=== PATIENT | female | born 1950 | race Caucasian/White ===

== ENCOUNTER 2018-03-04 08:10 | Inpatient (IN) | payer MEDICARE, OTHER ==
[2018-03-04] MEDS: SOD CHLORIDE 0.9% 500 ML IV (09:07)
[2018-03-04 09:20] LABS: WHITE BLOOD COUNT 6.6 10^3/ul (4.8-10.8)
[2018-03-04 09:20] LABS: ABNORMAL IP MESSAGE 1; HEMATOCRIT 16.1 % (37.0-47.0); MEAN CORPUSCULAR HEMOGLOBIN 25.6 pg (29.0-33.0); MEAN CORPUSCULAR HGB CONC 28.6 g/dl (32.0-37.0); MEAN CORPUSCULAR VOLUME 89.4 fl (82.0-101.0); MEAN PLATELET VOLUME 10.5 fl (7.4-10.4); NUCLEATED RED BLOOD CELLS% 0.3 /100WBC (0.0-0.0); PLATELET COUNT 163 10^3/UL (140-415); RED CELL DISTRIBUTION WIDTH 16.8 % (11.5-14.5)
[2018-03-04 09:26] LABS: HEMOGLOBIN 4.6 g/dl (12.0-16.0); POSITIVE DIFF @See below
[2018-03-04 09:27] LABS: ADD MAN DIFF? YES; PATH REVIEW? YES-PATH TO CONFIRM
[2018-03-04] MEDS: SOD CHLORIDE 0.9% 0 ML IV (09:27)
[2018-03-04 09:37] LABS: ANION GAP 12 (5-13); BLOOD UREA NITROGEN 44 mg/dl (7-20); CALCIUM 9.2 mg/dl (8.4-10.2); CARBON DIOXIDE 24 mmol/L (21-31); CHLORIDE 107 mmol/L (97-110); CREATININE 1.61 mg/dl (0.44-1.00); Estimated GFR 32 mL/min (>60); GLUCOSE 134 mg/dl (70-220); POTASSIUM 4.1 mmol/L (3.5-5.1); SODIUM 143 mmol/L (135-144)
[2018-03-04 09:43] LABS: ANISOCYTOSIS 1+ (0-0); BASOPHIL #M 0.1 10^3/ul (0.0-0.0); BASOPHILS % (M) 3 % (0-2); HYPOCHROMASIA 1+ (0-0); LYMPHOCYTES #M 0.6 10^3/ul (0.8-2.9); LYMPHOCYTES % (M) 10 % (15-51); MONOCYTE #M 0.2 10^3/ul (0.3-0.9); MONOCYTES % (M) 4 % (0-11); PLATELET ESTIMATE NORMAL; POLYCHROMASIA 3+ (0-0); SEGMENTED NEUTROPHILS (M) % 83 % (39-77); SMUDGE%M 27 % (0-0)
[2018-03-04 09:48] LABS: TROPONIN-I 0.028 ng/ml (0.000-0.120)
[2018-03-04] MEDS ORDERED: ACETAMINOPHEN 325 MG TAB PO (10:00)
[2018-03-04] MEDS ORDERED: ONDANSETRON 4 MG INJ IV ×2 (10:00→11:00)
[2018-03-04] MEDS ORDERED: DOCUSATE SODIUM 100 MG CAP PO (11:00)
[2018-03-04] MEDS ORDERED: NACL 0.9% 3 ML SYG IV (11:00)
[2018-03-04 11:20] LABS: IRON 17 ug/dl (35-150)
[2018-03-04 11:30] LABS: % IRON SATURATION 4 % SAT (22-52); TOTAL IRON BINDING CAPACITY 453 ug/dl (241-421)
[2018-03-04] MEDS ORDERED: GLUCOSE GEL 15 GRAM TUBE BUCCAL (11:30)
[2018-03-04] MEDS ORDERED: GLUCOSE GEL 15 GRAM TUBE PO ×2 (11:30)
[2018-03-04] MEDS ORDERED: DEXTROSE 50% 50 ML SYRINGE IV ×2 (11:30)
[2018-03-04] MEDS ORDERED: GLUCAGON 1 MG INJ IM (11:30)
[2018-03-04] MEDS: INSULIN ASPART [NOVOLOG] 3 ML PEN SC ×3 (11:50→20:25)
[2018-03-04] MEDS ORDERED: VERAPAMIL 120 MG TAB PO (13:00)
[2018-03-04] MEDS: SOD CHLORIDE 0.9% 1,000 ML IV (13:03)
[2018-03-04] MEDS: FISH OIL 1,000 MG CAP PO (13:03)
[2018-03-04] MEDS: FUROSEMIDE 20 MG INJ IV (13:04)
[2018-03-04] MEDS: SOD FERRIC GLUC COMPLX 125 MG in SOD CHLORIDE 0.9% 100 ML IVPB (15:24)
[2018-03-04 18:16] LABS: ADD UMIC NO; UR ASCORBIC ACID NEGATIVE (NEGATIVE); UR BILIRUBIN (Dip) NEGATIVE (NEGATIVE); UR BLOOD (Dip) NEGATIVE (NEGATIVE); UR CLARITY CLEAR (CLEAR); UR COLOR STRAW (YELLOW); UR GLUCOSE (Dip) NEGATIVE (NEGATIVE); UR KETONES (Dip) NEGATIVE (NEGATIVE); UR LEUKOCYTE ESTERASE (Dip) NEGATIVE Leu/ul (NEGATIVE); UR NITRITE (Dip) NEGATIVE (NEGATIVE); UR SPECIFIC GRAVITY (Dip) 1.008 (1.003-1.030); UR TOTAL PROTEIN (Dip) NEGATIVE (NEGATIVE); UR UROBILINOGEN (Dip) NEGATIVE (NEGATIVE)
[2018-03-04 18:30] LABS: CREATININE,URINE RANDOM 21.45 mg/dl (20-320)
[2018-03-04] MEDS: INSULIN GLARGINE [LANTus] (100 UNITS/ML) SYG SC (20:00)
[2018-03-04] MEDS: ATORVASTATIN 10 MG TAB PO (20:26)
[2018-03-04] MEDS: TERAZOSIN 2 MG CAP PO (20:26)
[2018-03-04] MEDS ORDERED: NON-FORMULARY/PATIENT OWN MED (Lovastatin 40 MG) PO (21:00)
[2018-03-04 21:51] LABS: IMMEDIATE SPIN CROSSMATCH 1 5
[2018-03-04] MEDS: SOD CHLORIDE 0.9% 250 ML IV* (22:04)
[2018-03-05] MEDS: ACCU-CHEK XX (02:00)
[2018-03-05 02:21] LABS: HEMATOCRIT 21.9 % (37.0-47.0)
[2018-03-05 02:26] LABS: HEMOGLOBIN 6.9 g/dl (12.0-16.0)
[2018-03-05] MEDS: INSULIN ASPART [NOVOLOG] 3 ML PEN SC ×4 (07:52→20:52)
[2018-03-05] MEDS: MULTIVITAMINS THERAPEUTIC TAB PO (08:08)
[2018-03-05] MEDS: ACETAMINOPHEN 325 MG TAB PO (08:08)
[2018-03-05] MEDS: FISH OIL 1,000 MG CAP PO (08:08)
[2018-03-05] MEDS: LINAGLIPTIN 5 MG TABLET PO (08:08)
[2018-03-05] MEDS: METOPROLOL 25 MG TAB PO (08:09)
[2018-03-05] MEDS ORDERED: INDAPAMIDE 2.5 MG PO (09:00)
[2018-03-05 11:58] LABS: OCCULT BLOOD STOOL NEGATIVE (NEGATIVE)
[2018-03-05 12:00] LABS: ADD MAN DIFF? NO
[2018-03-05 12:09] LABS: RETICULOCYTE RBC 3.05
[2018-03-05 12:09] LABS: RETICULOCYTE COUNT # 0.093 X10^6 (0.020-0.110); RETICULOCYTE COUNT % 3.1 % (0.5-1.5)
[2018-03-05 12:10] LABS: WHITE BLOOD COUNT 8.5 10^3/ul (4.8-10.8)
[2018-03-05 12:10] LABS: BASOPHIL # 0.1 10^3/ul (0.0-0.1); BASOPHILS % 0.9 % (0.0-2.0); EOSINOPHILS # 0.3 10^3/ul (0.0-0.5); EOSINOPHILS % 3.3 % (0.0-7.0); HEMATOCRIT 27.4 % (37.0-47.0); HEMOGLOBIN 8.4 g/dl (12.0-16.0); LYMPHOCYTES # 1.1 10^3/ul (0.8-2.9); LYMPHOCYTES % 12.5 % (15.0-51.0); MEAN CORPUSCULAR HEMOGLOBIN 26.8 pg (29.0-33.0); MEAN CORPUSCULAR HGB CONC 30.7 g/dl (32.0-37.0); MEAN CORPUSCULAR VOLUME 87.3 fl (82.0-101.0); MEAN PLATELET VOLUME 11.3 fl (7.4-10.4); MONOCYTE # 0.8 10^3/ul (0.3-0.9); MONOCYTES % 9.7 % (0.0-11.0); NEUTROPHIL # 6.2 10^3/ul (1.6-7.5); NEUTROPHILS % 73.1 % (39.0-77.0); NUCLEATED RED BLOOD CELLS # 0.1 10^3/ul (0.0-0.0); NUCLEATED RED BLOOD CELLS% 0.6 /100WBC (0.0-0.0); PLATELET COUNT 178 10^3/UL (140-415); RED BLOOD COUNT 3.14 10^6/ul (4.20-5.40); RED CELL DISTRIBUTION WIDTH 15.9 % (11.5-14.5)
[2018-03-05 12:21] LABS: ALANINE AMINOTRANSFERASE 23 IU/L (13-69); ALBUMIN 3.4 g/dl (3.3-4.9); ALBUMIN/GLOBULIN RATIO 1.13; ALKALINE PHOSPHATASE 58 IU/L (42-121); ANION GAP 6 (5-13); ASPARTATE AMINO TRANSFERASE 22 IU/L (15-46); BILIRUBIN,INDIRECT 1.2 mg/dl (0-1.1); BILIRUBIN,TOTAL 1.2 mg/dl (0.2-1.3); BLOOD UREA NITROGEN 38 mg/dl (7-20); CALCIUM 8.9 mg/dl (8.4-10.2); CARBON DIOXIDE 29 mmol/L (21-31); CHLORIDE 105 mmol/L (97-110); CHOLESTEROL 130 mg/dl (100-200); CREATININE 1.51 mg/dl (0.44-1.00); Estimated GFR 34 mL/min (>60); GLUCOSE 87 mg/dl (70-220); HDL CHOLESTEROL 32 mg/dl (33-92); LDL CHOLESTEROL,CALCULATED 63 mg/dl; MAGNESIUM 1.8 mg/dl (1.7-2.5); PHOSPHORUS 3.7 mg/dl (2.5-4.9); POTASSIUM 4.2 mmol/L (3.5-5.1); SODIUM 140 mmol/L (135-144); TOTAL PROTEIN 6.4 g/dl (6.1-8.1); TRIGLYCERIDES 173 mg/dl (0-149)
[2018-03-05 12:28] LABS: HEMOGLOBIN A1C 5.6 % (0-5.9)
[2018-03-05 12:53] LABS: LACTATE DEHYDROGENASE 594 IU/L (313-618)
[2018-03-05] MEDS: PE/SHARK OIL/MO/PETROL 30 GM OINT PR (12:56)
[2018-03-05] MEDS: SOD FERRIC GLUC COMPLX 125 MG in SOD CHLORIDE 0.9% 100 ML IVPB (12:56)
[2018-03-05] MEDS: SOD CHLORIDE 0.9% 500 ML IV (13:30)
[2018-03-05] MEDS: SOD CHLORIDE 0.9% 1,000 ML IV (13:30)
[2018-03-05 13:50] LABS: FOLATE > 20.0 ng/ml (2.8-20.0)
[2018-03-05 13:53] LABS: CARCINOEMBRYONIC ANTIGEN 1.8 ng/ml (0.0-5.0)
[2018-03-05] MEDS: PEG/ELECTROLYTES 4L BTL PO (14:48)
[2018-03-05 15:00] LABS: FERRITIN 19.6 ng/ml (11.1-264.0)
[2018-03-05 18:32] LABS: HEMATOCRIT 29.1 % (37.0-47.0); HEMOGLOBIN 8.9 g/dl (12.0-16.0)
[2018-03-05] MEDS: TERAZOSIN 2 MG CAP PO (20:54)
[2018-03-05] MEDS: ATORVASTATIN 10 MG TAB PO (20:54)
[2018-03-05] MEDS: INSULIN GLARGINE [LANTus] (100 UNITS/ML) SYG SC (20:59)
[2018-03-06] MEDS: PE/SHARK OIL/MO/PETROL 30 GM OINT PR ×3 (00:10→23:30)
[2018-03-06] MEDS: ACCU-CHEK XX (02:00)
[2018-03-06 05:32] LABS: ADD MAN DIFF? NO
[2018-03-06 05:43] LABS: WHITE BLOOD COUNT 9.4 10^3/ul (4.8-10.8)
[2018-03-06 05:43] LABS: BASOPHIL # 0.1 10^3/ul (0.0-0.1); BASOPHILS % 0.6 % (0.0-2.0); EOSINOPHILS # 0.3 10^3/ul (0.0-0.5); EOSINOPHILS % 3.5 % (0.0-7.0); HEMATOCRIT 26.4 % (37.0-47.0); HEMOGLOBIN 8.1 g/dl (12.0-16.0); LYMPHOCYTES # 1.2 10^3/ul (0.8-2.9); LYMPHOCYTES % 12.6 % (15.0-51.0); MEAN CORPUSCULAR HGB CONC 30.7 g/dl (32.0-37.0); MEAN PLATELET VOLUME 11.8 fl (7.4-10.4); MONOCYTES % 10.2 % (0.0-11.0); NEUTROPHIL # 6.8 10^3/ul (1.6-7.5); NEUTROPHILS % 72.6 % (39.0-77.0); NUCLEATED RED BLOOD CELLS% 0.3 /100WBC (0.0-0.0); PLATELET COUNT 154 10^3/UL (140-415); RED CELL DISTRIBUTION WIDTH 15.9 % (11.5-14.5)
[2018-03-06 06:11] LABS: ANION GAP 10 (5-13); BLOOD UREA NITROGEN 30 mg/dl (7-20); CALCIUM 8.5 mg/dl (8.4-10.2); CARBON DIOXIDE 26 mmol/L (21-31); CHLORIDE 107 mmol/L (97-110); Estimated GFR 41 mL/min (>60); GLUCOSE 77 mg/dl (70-220); POTASSIUM 3.8 mmol/L (3.5-5.1); SODIUM 143 mmol/L (135-144)
[2018-03-06] MEDS: INSULIN ASPART [NOVOLOG] 3 ML PEN SC ×4 (07:49→20:32)
[2018-03-06] MEDS: METOPROLOL 25 MG TAB PO (08:54)
[2018-03-06] MEDS: FISH OIL 1,000 MG CAP PO (08:54)
[2018-03-06] MEDS: LINAGLIPTIN 5 MG TABLET PO (08:55)
[2018-03-06] MEDS: MULTIVITAMINS THERAPEUTIC TAB PO (08:55)
[2018-03-06 09:02] LABS: HAPTOGLOBIN 243 mg/dL (43-212)
[2018-03-06 10:10] LABS: HEMATOCRIT 26.5 % (37.0-47.0); HEMOGLOBIN 8.1 g/dl (12.0-16.0)
[2018-03-06] MEDS: SOD CHLORIDE 0.9% 250 ML IV* (11:25)
[2018-03-06] MEDS: SOD CHLORIDE 0.9% 1,000 ML IV ×2 (11:26→17:39)
[2018-03-06 12:51] LABS: PROTEIN, TOTAL 6.3 g/dL (6.1-8.1)
[2018-03-06 14:22] LABS: ERYTHROPOIETIN 94.2 mIU/mL (2.6-18.5)
[2018-03-06] MEDS: PROPOFOL 60 ML (15:36)
[2018-03-06] MEDS: SOD FERRIC GLUC COMPLX 125 MG in SOD CHLORIDE 0.9% 100 ML IVPB (15:46)
[2018-03-06 19:41] LABS: ALBUMIN 3.2 g/dL (3.8-4.8); ALPHA-1-GLOBULINS 0.4 g/dL (0.2-0.3); BETA 2 GLOBULINS 0.3 g/dL (0.2-0.5); BETA GLOBULINS 0.6 g/dL (0.4-0.6); GAMMA GLOBULINS 0.9 g/dL (0.8-1.7)
[2018-03-06] MEDS: ATORVASTATIN 10 MG TAB PO (20:30)
[2018-03-06] MEDS: TERAZOSIN 2 MG CAP PO (20:31)
[2018-03-06] MEDS: INSULIN GLARGINE [LANTus] (100 UNITS/ML) SYG SC (20:45)
[2018-03-07] MEDS: ACCU-CHEK XX (02:00)
[2018-03-07 06:51] LABS: ADD MAN DIFF? NO
[2018-03-07 07:03] LABS: BASOPHILS % 0.5 % (0.0-2.0); EOSINOPHILS # 0.3 10^3/ul (0.0-0.5); EOSINOPHILS % 3.8 % (0.0-7.0); HEMATOCRIT 27.4 % (37.0-47.0); HEMOGLOBIN 8.5 g/dl (12.0-16.0); LYMPHOCYTES # 1.2 10^3/ul (0.8-2.9); LYMPHOCYTES % 15.9 % (15.0-51.0); MEAN CORPUSCULAR HEMOGLOBIN 27.7 pg (29.0-33.0); MEAN CORPUSCULAR VOLUME 89.3 fl (82.0-101.0); MEAN PLATELET VOLUME 11.2 fl (7.4-10.4); MONOCYTE # 0.8 10^3/ul (0.3-0.9); MONOCYTES % 11.3 % (0.0-11.0); NUCLEATED RED BLOOD CELLS% 0.3 /100WBC (0.0-0.0); PLATELET COUNT 157 10^3/UL (140-415); RED BLOOD COUNT 3.07 10^6/ul (4.20-5.40); RED CELL DISTRIBUTION WIDTH 16.1 % (11.5-14.5)
[2018-03-07 07:03] LABS: WHITE BLOOD COUNT 7.4 10^3/ul (4.8-10.8)
[2018-03-07] MEDS: INSULIN ASPART [NOVOLOG] 3 ML PEN SC ×2 (07:17→11:47)
[2018-03-07 07:21] LABS: ANION GAP 9 (5-13); BLOOD UREA NITROGEN 22 mg/dl (7-20); CALCIUM 8.4 mg/dl (8.4-10.2); CARBON DIOXIDE 27 mmol/L (21-31); CHLORIDE 108 mmol/L (97-110); CREATININE 1.22 mg/dl (0.44-1.00); Estimated GFR 44 mL/min (>60); GLUCOSE 69 mg/dl (70-220); POTASSIUM 4.1 mmol/L (3.5-5.1); SODIUM 144 mmol/L (135-144)
[2018-03-07] MEDS: LINAGLIPTIN 5 MG TABLET PO (08:07)
[2018-03-07] MEDS: MULTIVITAMINS THERAPEUTIC TAB PO (08:07)
[2018-03-07] MEDS: FISH OIL 1,000 MG CAP PO (08:07)
[2018-03-07] MEDS: METOPROLOL 25 MG TAB PO (08:08)
[2018-03-07] MEDS: PE/SHARK OIL/MO/PETROL 30 GM OINT PR (11:47)
[2018-03-07 13:04] LABS: ADD UMIC NO; UR ASCORBIC ACID NEGATIVE (NEGATIVE); UR BILIRUBIN (Dip) NEGATIVE (NEGATIVE); UR BLOOD (Dip) NEGATIVE (NEGATIVE); UR CLARITY CLEAR (CLEAR); UR COLOR YELLOW (YELLOW); UR GLUCOSE (Dip) NEGATIVE (NEGATIVE); UR KETONES (Dip) NEGATIVE (NEGATIVE); UR LEUKOCYTE ESTERASE (Dip) NEGATIVE Leu/ul (NEGATIVE); UR NITRITE (Dip) NEGATIVE (NEGATIVE); UR TOTAL PROTEIN (Dip) NEGATIVE (NEGATIVE); UR UROBILINOGEN (Dip) NEGATIVE (NEGATIVE)
[2018-03-07 13:59] LABS: CREATININE,URINE RANDOM 65.99 mg/dl (20-320)
[2018-03-07 13:59] LABS: SODIUM,URINE RANDOM 86 mmol/L (30-90)
[2018-03-11 13:06] LABS: CREATININE, RANDOM URINE 72 mg/dL (20-275); MICROALBUMIN 4.7 mg/dL; MICROALBUMIN/CREATININE RATIO 65 (<30)
== END 2018-03-07 13:03 | disposition home or self-care (01) | DRG 812 ==
LOC: E/R 08:10 → TEL 09:53
PROVIDERS: Orthopaedic Surgery
PROC: 0DB68ZX Excision of Stomach, Via Natural or Artificial Opening Endoscopic, Diagnostic (ICD-10-PCS; principal; 2018-03-06 12:22)
PROC: 0DB78ZX Excision of Stomach, Pylorus, Via Natural or Artificial Opening Endoscopic, Diagnostic (ICD-10-PCS; 2018-03-06 12:22)
PROC: 0DBK8ZX Excision of Ascending Colon, Via Natural or Artificial Opening Endoscopic, Diagnostic (ICD-10-PCS; 2018-03-06 12:22)
PROC: 30233N1 Transfusion of Nonautologous Red Blood Cells into Peripheral Vein, Percutaneous Approach (ICD-10-PCS; 2018-03-06 12:22)
DX: D50.9 Iron deficiency anemia, unspecified (principal); N17.9 Acute kidney failure, unspecified; Z68.43 Body mass index [BMI] 50.0-59.9, adult; D50.0 Iron deficiency anemia secondary to blood loss (chronic); I12.9 Hypertensive chronic kidney disease with stage 1 through stage 4 chronic kidney disease, or unspecified chronic kidney disease; N18.9 Chronic kidney disease, unspecified; E66.01 Morbid (severe) obesity due to excess calories; K31.7 Polyp of stomach and duodenum; K29.30 Chronic superficial gastritis without bleeding; K20.8 Other esophagitis; D12.2 Benign neoplasm of ascending colon; K64.8 Other hemorrhoids
CPT/HCPCS: 36415; 36430; 71045; 76775; 80048; 80053; 80061; 81003; 82043; 82270; 82378; 82607; 82668; 82728; 82746; 82962; 83010; 83036; 83540; 83615; 83735; 84100; 84155; 84165; 84300; 84443; 84484; 85014; 85018; 85025; 85045; 86644; 86850; 86900; 86901; 86920; 88305; 88312; 88313; 93005; 93306; 99291-25